=== PATIENT | male | born 2000 | race Caucasian/White ===

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

== ENCOUNTER 2024-09-24 15:29 | Emergency (ER) | payer BC ==
[2024-09-24 15:52] VITALS: BP 141/90; PULSE 99; RESP 15; TEMP 98.4
[2024-09-24 16:17] LABS: Appearance,Urine Clear (Clear); Bilirubin,Urine Negative (Negative); Blood,Urine Negative (Negative); Color,Urine Light Yellow; Glucose,Urine (UA) Negative (Negative); Ketones,Urine Negative (Negative); Leukocyte Esterase,Urine Negative (Negative); Nitrite,Urine Negative (Negative); Protein,Urine Negative (Negative); Urobilinogen,Urine <2.0 mg/dL (<2.0)
--- NOTE | 2024-09-24 16:18 | ED ---
Back Pain HPI - General Source: patient, RN notes reviewed Limitations: no limitations <Fawn Hassan - Last Filed: 09/24/24 16:12> <Mckenna Levine - Last Filed: 09/25/24 16:07> - General Chief Complaint: Back Pain/Injury Stated Complaint: back and R abd pain Time Seen by Provider: 09/24/24 16:12 - History of Present Illness Initial Comments: Quick note: 24 year old male presenting to the ER for evaluation of right side back/abdominal pain. Patient states this morning he started to experience a right side back discomfort which is now covering his right upper quadrant. He admits to nausea no vomiting. He admits to profuse sweating unknown fevers. No diarrhea. No history of kidney stones. (Fawn Hassan) Patient is a pleasant 24-year-old male past medical history of asthma presenting today for right flank pain. Pain started this morning on the right side of his back and began radiating to the right upper quadrant of his abdomen. Describes it as intermittent and he feels like he is unable to get comfortable. Continued to worsen throughout the day and endorse associated nausea and feeling sweaty but no vomiting. No fevers. Denies diarrhea or constipation. No hematochezia or melena. No diarrhea. No vomiting. No chest pain. No difficulty in breathing. No prior abdominal surgeries. Denies dysuria or hematuria. He is currently being treated for epididymitis but denies any pain in his testicles at this point. (Mckenna Levine) - Related Data Home Medications Medication Instructions Recorded Confirmed Albuterol Inhaler [Ventolin Hfa 1 - 2 puff INHALATION RT-Q6H PRN 04/05/17 04/05/17 Inhaler] Cetirizine HCl [Zyrtec] 10 mg PO DAILY 04/05/17 04/05/17 Mometasone Furoate [Asmanex] 1 puff INHALATION RT-DAILY 04/05/17 04/05/17 Previous Rx's Medication Instructions Recorded HYDROcodone/APAP 5-325MG [[place] 1 tab PO Q6HR PRN #12 tab 04/05/17 5-325] Ibuprofen [Motrin] 0 mg PO TID #30 tab 04/05/17 Allergies Allergy/AdvReac Type Severity Reaction Status Date / Time aspirin Allergy Swelling Verified 09/24/24 15:53 ibuprofen Allergy Swelling Verified 09/24/24 15:53 Penicillins Allergy Rash/Hives Verified 09/24/24 15:53 shellfish derived [Shellfish] Allergy Per Verified 09/24/24 15:53 Allergy Testing Review of Systems ROS Other: All systems not noted in ROS Statement are negative. <Fawn Hassan - Last Filed: 09/24/24 16:12> ROS Other: All systems not noted in ROS Statement are negative. <Mckenna Levine - Last Filed: 09/25/24 16:07> ROS Statement: Those systems with pertinent positive or pertinent negative responses have been documented in the HPI. Past Medical History Past Medical History: Asthma History of Any Multi-Drug Resistant Organisms: None Reported Additional Past Surgical History / Comment(s): eye muscle Past Psychological History: No Psychological Hx Reported Smoking Status: Vaper Past Alcohol Use History: None Reported, Rare Past Drug Use History: None Reported, Marijuana <Fawn Hassan - Last Filed: 09/24/24 16:12> General Exam Limitations: no limitations <Fawn Hassan - Last Filed: 09/24/24 16:12> <Mckenna Levine - Last Filed: 09/25/24 16:07> - General Exam Comments Initial Comments: Visual Physical Exam Vital signs reviewed General: Well-appearing, nontoxic, no acute distress. Head: Normocephalic, atraumatic Eyes: PERRLA, EOMI ENT: Airway patent Chest: Nonlabored breathing Skin: No visual rash, normal skin tone Neuro: Alert and oriented 3 Musculoskeletal: No gross abnormalities (Fawn Hassan) PE: Exam limited as was performed in waiting room CONSTITUTIONAL: No apparent distress, well appearing SKIN: Warm, dry, no jaundice, hives or petechiae EYES: Pupils are equally round, extraocular movements intact without nystagmus, clear conjunctiva, non-icteric sclera HENT: Normocephalic, atraumatic, moist mucus membranes, oropharynx clear without exudates NECK: , Full range of motion, normal appearance PULMONARY: Clear to auscultation without wheezes, rhonchi, or rales, normal excursion, no accessory muscle use and no stridor CARDIOVASCULAR: Regular rate, rhythm, normal S1 and S2. No appreciated murmurs, rubs or gallops. Strong radial pulses with intact distal perfusion. GASTROINTESTINAL: Soft, active bowel sounds throughout, negative Mccormick sign, nontender non-distended, no palpable masses, no rebound or guarding. No hepatosplenomegaly, right CVA tenderness to palpation GENITOURINARY: exam was later performed with patient in exam room, [place] RN is cotton ginner helper, normal male exam, shows normal testicular lie, no scrotal swelling or erythema, no tenderness to palpation of the scrotum, no lesions, erythema or discharge, no palpable hernias MUSCULOSKELETAL: Extremities have no gross deformity NEUROLOGIC:_a/o x 3, GCS 15, normal mentation and speech. Moves all extremities x 4 without motor or sensory deficit PSYCHIATRIC:_normal mood and affect, thought process is clear and linear (Mckenna Levine) Course Vital Signs 09/24/24 15:49 Temperature 98.4 F Pulse Rate 99 Respiratory 15 Rate Blood Pressure 141/90 O2 Sat by Pulse 100 Oximetry Medical Decision Making <Fawn Hassan - Last Filed: 09/24/24 16:12> - Lab Data Result diagrams: 09/24/24 17:30 09/24/24 17:30 <Mckenna Levine - Last Filed: 09/25/24 16:07> - Medical Decision Making I performed the quick note portion of this chart. Electronically signed by Fawn Hassan PA-C (Fawn Hassan) Was pt. sent in by a medical professional or institution ([facility], LOAN ORIGINATOR, urgent care, hospital, or correction...) When possible be specific @ -No Did you speak to anyone other than the patient for history (EMS, parent, family, police, friend...)? What history was obtained from this source @ -No Did you review nursing and triage notes (agree or disagree)? Why? @ -I reviewed nursing and triage notes Were old charts reviewed (outside hosp., previous admission, EMS record, old EKG, old radiological studies, urgent care reports/EKG's, correction records)? Report findings @ -Medical records reviewed last chart available for review is from an emergency department visit in 2017 when patient was evaluated for a shoulder injury sustained while being tackled in a football game Differential Diagnosis (chest pain, altered mental status, abdominal pain women, abdominal pain men, vaginal bleeding, weakness, fever, dyspnea, syncope, headache, dizziness, GI bleed, back pain, seizure, CVA, palpatations, mental health, musculoskeletal)? @Differential Abdominal Pain Men: Appendicitis, cholecystitis, diverticulosis, ischemic bowel, pancreatitis, hepatitis, UTI, gastroenteritis,incarcerated hernia, bowel obstruction, constipation, inflammatory bowel, hepatitis, peptic ulcer disease, splenic infarction, perforated viscus, testicular torsion, this is not meant to be an all-inclusive list EKG interpreted by me (3pts min.). @ -As above X-rays interpreted by me (1pt min.). @ -None done CT interpreted by me (1pt min.). @ -I personally reviewed CT abdomen pelvis, I see no evidence of hydronephrosis, ureterolithiasis or nephrolithiasis, no hydroureter, no signs of bowel obstruction or perforation, there is a large amount of stool in the right ascending colon and at the hepatic flexure, no acute process, I agree with radiologist interpretation U/S interpreted by me (1pt. min.). @ -I personally reviewed patient's ultrasound, I see no evidence of biliary duct dilation or gallbladder wall thickening] What testing was considered but not performed or refused? (CT, X-rays, U/S, lab s)? Why? @ -None What meds were considered but not given or refused? Why? @ -None Did you discuss the management of the patient with other professionals (professionals i.e. , PA, LOAN ORIGINATOR, lab, RT, psych nurse, social research assistant, desizing pad operator, teacher, parking enforcement officer, pillowcase maker)? Give summary @ -No Was smoking cessation discussed for >3mins.? @ -No Was critical care preformed (if so, how long)? @ -No Were there social determinants of health that impacted care today? How? (Homelessness, low income, unemployed, alcoholism, drug addiction, transportation, low edu. Level, literacy, decrease access to med. care, correction, rehab)? @ -No Was there de-escalation of care discussed even if they declined (Discuss DNR or withdrawal of care, Hospice)? @ -No What co-morbidities impacted this encounter? (DM, HTN, Smoking, COPD, CAD, Cancer, CVA, ARF, Chemo, Hep., AIDS, mental health diagnosis, sleep apnea, morbid obesity)? @ -None Was patient admitted / discharged? Hospital course, mention meds given and route, prescriptions, significant lab abnormalities, going to OR and other pertinent info. @Discharged -patient is a pleasant previously well 24-year-old male presenting today for right flank pain radiating around to the right side of his abdomen. Initially seen by triage provider. Ultrasound of the gallbladder and basic lab as well as urinalysis were obtained. Gallbladder ultrasound does not show any acute process. Urinalysis shows no blood or signs of infection. Labs pending. Patient still in waiting room on my assessment due to bed shortage throughout the emergency department. Obtained permission from the patient to discuss case while in the waiting room. He was agreeable. On my assessment patient has right CVA tenderness and described the pain as "difficulty getting comfortable" so concern remains for ureterothiasis, will obtain a CT abdomen pelvis. Patient agreeable plan of care. CT scan showed no acute process. Labs remarkable only for total bilirubin of 1.5, minimally elevated, LFTs otherwise within normal limits. On reassessment patient states pain is not as bad as this morning though has not yet resolved. He is comfortable appearing. He notes that he is currently being treated for epididymitis and asked that this could have anything to do with his abdominal pain. He denied testicular pain or pain radiating to his testicles, stating that after beginning treatment for epididymitis his symptoms have resolved however will obtain a exam to ensure no signs of involvement. Testicular exam was performed with MEEK Ghotra as cotton ginner helper, there is no testicular pal pation, no swelling, normal lie, normal cremaster reflex, no hernias. Updated patient to reassuring findings on CT and ultrasound. As well as labs. We discussed the possibility of small ureterolithiasis, choledocholithiasis, constipation and other potential etiology for his pain. With this I discussed with him that should his pain fail to resolve in the next 48 hours, should it become more severe like it was this morning or should he have any fevers, vomiting or any further concerns or his wellbeing he should return to the ER immediately for reassessment. Patient agreeable and understanding plan. In my medical judgment there is currently no evidence of an immediate life- threatening or surgical condition. Discharge is therefore indicated at this time. Discharge treatment instructions, follow up instructions, and appropriate emergency department return precautions were discussed with the patient and/or medical decision maker. Patient and/or medical decision maker expressed und erstanding of and agreed with the treatment plan, follow up instructions, and emergency department return precaution. All patient's and/or medical decision maker's questions were answered. The patient was advised that a small risk still exists that a serious condition could develop and was therefore instructed to return to the ED for any changes in symptoms, persistent symptoms, inability to obtain proper follow-up or for any further concerns. Patient received verbal and written instructions for this condition. Undiagnosed new problem with uncertain prognosis? @ -No Drug Therapy requiring intensive monitoring for toxicity (Heparin, Nitro, Insulin, Cardizem)? @ -No Were any procedures done? @ -No Diagnosis/symptom? @Right flank pain Acute, or Chronic, or Acute on Chronic? @Acute Uncomplicated (without systemic symptoms) or Complicated (systemic symptoms)? @ -Uncomplicated Side effects of treatment? @ -No Exacerbation, Progression, or Severe Exacerbation? @ -No Poses a threat to life or bodily function? How? (Chest pain, [place], [place], pneumonia, PE, COPD, DKA, ARF, appy, cholecystitis, CVA, Diverticulitis, Homicidal, Suicidal, threat to staff... and all critical care pts) @ -No (Vincentian,Mckenna) - Lab Data Lab Results 09/24/24 09/24/24 09/24/24 Range/Units 15:53 17:30 17:30 WBC 10.2 (3.8-10.6) k/uL RBC 5.04 (4.30-5.90) m/uL Hgb 16.1 (13.0-17.5) gm/dL Hct 48.4 (39.0-53.0) % MCV 96.1 (80.0-100.0) fL MCH 31.9 (25.0-35.0) pg MCHC 33.2 (31.0-37.0) g/dL RDW 12.3 (11.5-15.5) % Plt Count 305 (150-450) k/uL MPV 7.2 Neutrophils % 63 % Lymphocytes % 28 % Monocytes % 7 % Eosinophils % 1 % Basophils % 0 % Neutrophils # 6.4 (1.3-7.7) k/uL Lymphocytes # 2.8 (1.0-4.8) k/uL Monocytes # 0.7 (0-1.0) k/uL Eosinophils # 0.1 (0-0.7) k/uL Basophils # 0.0 (0-0.2) k/uL Sodium 138 (137-145) mmol/L Potassium 4.1 (3.5-5.1) mmol/L Chloride 101 (98-107) mmol/L Carbon Dioxide 28 (22-30) mmol/L Anion Gap 9 mmol/L BUN 14 (9-20) mg/dL Creatinine 1.14 (0.66-1.25) mg/dL Est GFR (CKD-EPI)AfAm >90 (>60 ml/min/1.73 sqM) Est GFR (CKD-EPI)NonAf 89 (>60 ml/min/1.73 sqM) Glucose 84 (74-99) mg/dL Plasma Lactic Acid Christian (0.7-2.0) mmol/L Calcium 9.8 (8.4-10.2) mg/dL Total Bilirubin 1.5 H (0.2-1.3) mg/dL AST 31 (17-59) U/L ALT 31 (4-49) U/L Alkaline Phosphatase 66 (38-126) U/L Total Protein 7.7 (6.3-8.2) g/dL Albumin 4.8 (3.5-5.0) g/dL Amylase 109 (30-110) U/L Lipase 115 (23-300) U/L Urine Color Light Yellow Urine Appearance Clear (Clear) Urine pH 7.0 (5.0-8.0) Ur Specific [place] 1.020 (1.001-1.035) Urine Protein Negative (Negative) Urine Glucose (UA) Negative (Negative) Urine Ketones Negative (Negative) Urine Blood Negative (Negative) Urine Nitrite Negative (Negative) Urine Bilirubin Negative (Negative) Urine Urobilinogen <2.0 (<2.0) mg/dL Ur Leukocyte Esterase Negative (Negative) 09/24/24 Range/Units 17:30 WBC (3.8-10.6) k/uL RBC (4.30-5.90) m/uL Hgb (13.0-17.5) gm/dL Hct (39.0-53.0) % MCV (80.0-100.0) fL MCH (25.0-35.0) pg MCHC (31.0-37.0) g/dL RDW (11.5-15.5) % Plt Count (150-450) k/uL MPV Neutrophils % % Lymphocytes % % Monocytes % % Eosinophils % % Basophils % % Neutrophils # (1.3-7.7) k/uL Lymphocytes # (1.0-4.8) k/uL Monocytes # (0-1.0) k/uL Eosinophils # (0-0.7) k/uL Basophils # (0-0.2) k/uL Sodium (137-145) mmol/L Potassium (3.5-5.1) mmol/L Chloride (98-107) mmol/L Carbon Dioxide (22-30) mmol/L Anion Gap mmol/L BUN (9-20) mg/dL Creatinine (0.66-1.25) mg/dL Est GFR (CKD-EPI)AfAm (>60 ml/min/1.73 sqM) Est GFR (CKD-EPI)NonAf (>60 ml/min/1.73 sqM) Glucose (74-99) mg/dL Plasma Lactic Acid Christian 1.1 (0.7-2.0) mmol/L Calcium (8.4-10.2) mg/dL Total Bilirubin (0.2-1.3) mg/dL AST (17-59) U/L ALT (4-49) U/L Alkaline Phosphatase (38-126) U/L Total Protein (6.3-8.2) g/dL Albumin (3.5-5.0) g/dL Amylase (30-110) U/L Lipase (23-300) U/L Urine Color Urine Appearance (Clear) Urine pH (5.0-8.0) Ur Specific [place] (1.001-1.035) Urine Protein (Negative) Urine Glucose (UA) (Negative) Urine Ketones (Negative) Urine Blood (Negative) Urine Nitrite (Negative) Urine Bilirubin (Negative) Urine Urobilinogen (<2.0) mg/dL Ur Leukocyte Esterase (Negative) Disposition <Fawn Hassan - Last Filed: 09/24/24 16:12> Is patient prescribed a controlled substance at d/c from ED?: No <Mckenna Levine - Last Filed: 09/25/24 16:07> Clinical Impression: Right flank pain Disposition: HOME SELF-CARE Condition: Stable Instructions (If sedation given, give patient instructions): Acute Abdominal Pain (ED) Additional Instructions: Every disease is a spectrum and a small chance still exists that a serious condition could develop, for this reason, please monitor yourself closely for new, changing or worsening symptoms, symptoms that persist beyond 48 hours, increase in severity of pain, blood in your urine, difficulty urinating, vomiting blood or bright green color in your vomit, black or bloody stools, no bowel movement for greater than 5 days, fever, inability to tolerate/keep down fluids or your medications, inability to follow up with outpatient providers as instructed and should you experience these symptoms or should you have any further concerns for your wellbeing please return to the ED or call 911 immediately. Please follow-up with general surgeon, Dr. Tellez within the next week guarding today's visit. Please follow-up with your primary care provider in the next 48 hours regarding today's visit. PLEASE call your primary care physician as soon as possible to arrange / discuss plan for followup appointment. Appointment in the next 1-3 days is strongly encouraged if possible. PLEASE let us know here before you leave if there is anything further we can do to be of any assistance. Take care and feel Better! Referrals: Jhon Ardon MD [Primary Care Provider] - 1-2 days Ortiz Tellez MD [Medical Doctor] - 1-2 days
--- NOTE | 2024-09-24 16:39 | US ---
EXAMINATION TYPE: US gallbladder DATE OF EXAM: 09/24/2024 COMPARISON: EXAMINATION TYPE: US gallbladder DATE OF EXAM: 09/24/2024 COMPARISON: NONE CLINICAL INDICATION: Male, 24 years old with history of RUQ abd pain; Right ABD pain TECHNIQUE: Grayscale and color Doppler imaging of the right upper quadrant was performed. FINDINGS: EXAM MEASUREMENTS: Liver Length: 15.7 cm Gallbladder Wall: 0.2 cm CBD: 0.4 cm Right Kidney: 11.0 x 4.7 x 5.3 cm PERMANENT WAVER NOTES: Pancreas: Obscured by bowel gas Liver: wnl Gallbladder: Slightly contracted, pt not NPO Evidence for sonographic Mccormick's sign: No CBD: wnl Right Kidney: wnl IMPRESSION: 1. No acute ultrasound abnormality right upper quadrant [facility], , 09/24/2024 4:36 PM
[2024-09-24 17:34] LABS: Basophils % (A) 0 %; Eosinophils # (A) 0.1 k/uL (0-0.7); Eosinophils % (A) 1 %; HCT 48.4 % (39.0-53.0); HGB 16.1 gm/dL (13.0-17.5); Lymphocytes # (A) 2.8 k/uL (1.0-4.8); Lymphocytes % (A) 28 %; MCH 31.9 pg (25.0-35.0); MCHC 33.2 g/dL (31.0-37.0); MCV 96.1 fL (80.0-100.0); Mean Platelet Volume 7.2; Monocytes # (A) 0.7 k/uL (0-1.0); Monocytes % (A) 7 %; Neutrophils # (A) 6.4 k/uL (1.3-7.7); Neutrophils % (A) 63 %; Platelet Count 305 k/uL (150-450); RBC 5.04 m/uL (4.30-5.90); RDW 12.3 % (11.5-15.5); WBC 10.2 k/uL (3.8-10.6)
[2024-09-24] MEDS: CYCLOBENZAPRINE 10 MG TAB PO STA (17:35)
[2024-09-24] MEDS: ACETAMINOPHEN TAB 325 MG TAB PO STA (17:35)
[2024-09-24] MEDS: MAG HYDROX/AL HYDROX/SIMETH 30 ML CUP PO STA (17:36)
[2024-09-24] MEDS: FAMOTIDINE 20 MG/2 ML VIAL IV STA (17:36)
[2024-09-24 17:47] LABS: ALT 31 U/L (4-49); AST 31 U/L (17-59); African American GFR (CKD) >90 (>60 ml/min/1.73 sqM); Albumin 4.8 g/dL (3.5-5.0); Alkaline Phosphatase 66 U/L (38-126); Amylase 109 U/L (30-110); Anion Gap 9 mmol/L; Blood Urea Nitrogen 14 mg/dL (9-20); Calcium 9.8 mg/dL (8.4-10.2); Carbon Dioxide 28 mmol/L (22-30); Chloride 101 mmol/L (98-107); Glucose 84 mg/dL (74-99); Lipase 115 U/L (23-300); Non-African American GFR(CKD) 89 (>60 ml/min/1.73 sqM); Potassium 4.1 mmol/L (3.5-5.1); Sodium 138 mmol/L (137-145); Total Bilirubin 1.5 mg/dL (0.2-1.3); Total Protein 7.7 g/dL (6.3-8.2)
--- NOTE | 2024-09-24 17:48 | CT ---
EXAMINATION TYPE: CT abdomen pelvis wo con DATE OF EXAM: 09/24/2024 5:40 PM COMPARISON: None. CLINICAL INDICATION: Male, 24 years old with history of right flank pain, right flank pain TECHNIQUE: Axial images were obtained from above the diaphragm to the pubic rami in the axial plane a t 5 mm thick sections. Reconstructed images are reviewed on the computer in the coronal plane. CONTRAST: mL of . Study performed without Oral Contrast DLP: 506.9 mGycm, Automated exposure control for dose reduction was used. FINDINGS: Limited CT sections are obtained the lung bases. The lung bases are clear. CT ABDOMEN: Liver: Normal Spleen: Normal Pancreas: Normal Adrenal glands: The adrenal glands are normal. Gallbladder: Normal Kidneys: No masses are evident. No hydronephrosis is present. No cysts are present. No renal stone s are evident. No ureteral stones are identified. Aorta: Vascular calcification is within the aorta. Inferior vena cava: Normal. CT PELVIS: Loops of bowel within the abdomen and pelvis are normal. There is diverticular changes within the sig moid colon. No adjacent inflammatory changes suggest acute diverticulitis evident. There are loops of bowel which are incompletely distended or lack oral contrast limiting their evaluation. Appendix: Surgically absent Urinary bladder: Normal. Genitourinary structures: Prostate is normal Osseous structures: No suspicious lytic or sclerotic lesions. IMPRESSION: 1. No acute abnormality to account for patient's symptoms. [facility], , 09/24/2024 5:46 PM
== END 2024-09-24 18:49 | disposition home or self-care (01) ==
LOC: EC 15:29
DX: R10.11 Right upper quadrant pain (principal); F17.290 Nicotine dependence, other tobacco product, uncomplicated; Z88.0 Allergy status to penicillin; Z91.013 Allergy to seafood; Z88.6 Allergy status to analgesic agent
CPT/HCPCS: 36415; 80053; 82150; 83605; 83690; 85025; 81003; 76705; 74176; 99284; 96374; J3490